=== PATIENT | female | born 1970 | race Caucasian/White ===

== ENCOUNTER 2022-10-18 12:15 | Day surgery (SDC) | payer OTHER ==
[2022-10-18 12:47] VITALS: RESP 18; TEMP 98.1
--- NOTE | 2022-10-18 13:58 | US ---
ULTRASOUND GUIDED FNA THYROID BIOPSY: CLINICAL HISTORY: Left thyroid nodule FINDINGS: The procedure was explained to the patient. The risks, complications, benefits and alternatives were discussed and any questions were answered. Informed consent was obtained. Patient was placed supin e on the ultrasound table and prepped and draped in the usual sterile fashion. Utilizing a 25 gauge needle, five passes were made into the requested left thyroid. Patient was stable throughout the procedure. Pathology is pending. All elements of maximal barrier technique were utilized. IMPRESSION: 1. Successful ultrasound guided FNA thyroid biopsy.
[2022-10-18 14:19] VITALS: BP 129/84; PULSE 78
== END 2022-10-18 13:57 | disposition home or self-care (01) ==
LOC: RADPROMAIN 12:15
PROVIDERS: ATTEND Internal Medicine Endocrinology, Diabetes & Metabolism
DX: E04.1 Nontoxic single thyroid nodule (principal)
CPT/HCPCS: 10005; 88173; 88305